=== PATIENT | male | born 1940 | race Caucasian/White ===

== ENCOUNTER 2016-12-12 18:06 | Emergency (ER) | payer MEDICARE, BC ==
[~2016-12-12] VITALS: Ht 180.3 cm; Wt 78.0 kg
[~2016-12-12 18:06] MED LIST: AMLODIPINE BESYL5 MG PO; KENALOG 0.1%80 GM T; LOMOTIL 0.025 M1 TA1 PO; NEXIUM10 MG/PACK PO; NORCO 5-325 TA1 EACH PO; PRILOSEC20 M1 PO; VITAMIN B11000 MCG/M IM; ZOFRAN ODT4 MG SL; [UNRECOGNIZED DRUG - REMARK] PO
[2016-12-12] MEDS ORDERED: IMODIUM A-D2 M3 PO (18:27)
[2016-12-12] MEDS ORDERED: POLLY-VITES1 CTB PO (18:28)
[2016-12-12] MEDS ORDERED: IRON325 M1 PO (18:28)
[2016-12-12 18:59] LABS: BASO % 0.3 % (0.0-1.0); EOS # 0.2 10*3/uL (0.0-0.4); EOS % 3.4 % (1.0-4.0); HEMATOCRIT 38.1 % (42.0-52.0); HEMOGLOBIN 12.7 g/dl (14.0-18.0); LYMPH # 1.6 10*3/uL (1.3-4.4); LYMPH % 26.7 % (27.0-41.0); MEAN CELL VOLUME 92.3 fl (80.0-94.0); MEAN CORPUSCULAR HGB 30.8 pg (27.0-31.0); MEAN CORPUSCULAR HGB CONC 33.3 g/dl (33.0-37.0); MEAN PLATELET VOLUME 9.3 fl (9.6-12.3); MONO # 0.5 10*3/uL (0.1-1.0); MONO % 7.7 % (3.0-9.0); NEUT # 3.8 10*3/uL (2.3-7.9); NEUT % 61.6 % (47.0-73.0); PLATELET COUNT AUTOMATED 259 10*3/uL (130-400); RED BLOOD COUNT 4.13 10*6/uL (4.50-5.90); RED CELL DISTRI WIDTH 14.1 % (0-14.5); WHITE BLOOD COUNT 6.1 10*3/uL (4.8-10.8)
[2016-12-12 19:14] LABS: ALBUMIN 3.2 gm/dl (3.1-4.5); ALKALINE PHOSPHATASE 94 U/L (45-117); BILIRUBIN, TOTAL 0.2 mg/dl (0.2-1.0); BUN 16 mg/dl (7-24); CARBON DIOXIDE 28 mmol/L (21-32); CHLORIDE 108 mmol/L (98-107); EST GLOM FILT AFRICAN AMERICAN > 60 ml/min; GLUCOSE 119 mg/dL (65-99); POTASSIUM 4.5 mmol/L (3.5-5.1); SGOT/AST 20 IU/L (3-35); SGPT/ALT 32 U/L (12-78); SODIUM 144 mmol/L (136-145); TOTAL PROTEIN 6.9 gm/dL (6.4-8.2)
== END 2016-12-12 19:38 | disposition home or self-care (01) ==
LOC: ED 18:06
PROVIDERS: Nurse Practitioner Family
DX: T81.89XA Other complications of procedures, not elsewhere classified, initial encounter (principal); Z79.899 Other long term (current) drug therapy

== ENCOUNTER 2017-03-17 10:54 | Emergency (ER) | payer MEDICARE, BC ==
[~2017-03-17] VITALS: Ht 180.3 cm; Wt 78.9 kg
[~2017-03-17 10:54] MED LIST changes: +IMODIUM A-D2 M3 PO; +IRON325 M1 PO; +POLLY-VITES1 CTB PO
[2017-03-17] MEDS ORDERED: VITAMIN D32000 UNIT PO (11:12)
[2017-03-17] MEDS ORDERED: CENTRUM SILVER1 EACH PO (11:12)
[2017-03-17] MEDS ORDERED: OMEGA-3100 MG PO (11:12)
[2017-03-17] MEDS ORDERED: NAPROSYN500 MG PO (11:16)
[2017-03-17] MEDS ORDERED: HYDROCODONE BIT1 T11 PO (12:45)
== END 2017-03-17 14:17 | disposition home or self-care (01) ==
LOC: ED 10:54
DX: S92.354A Nondisplaced fracture of fifth metatarsal bone, right foot, initial encounter for closed fracture (principal); S82.54XA Nondisplaced fracture of medial malleolus of right tibia, initial encounter for closed fracture; S82.64XA Nondisplaced fracture of lateral malleolus of right fibula, initial encounter for closed fracture; Z79.899 Other long term (current) drug therapy; R03.0 Elevated blood-pressure reading, without diagnosis of hypertension; X50.9XXA Other and unspecified overexertion or strenuous movements or postures, initial encounter; Y93.89 Activity, other specified; Y92.9 Unspecified place or not applicable; Y99.9 Unspecified external cause status

== ENCOUNTER → 2017-11-23 | Outpatient (CLI) | payer MEDICARE ==
[~2017-11-23] MED LIST changes: +CENTRUM SILVER1 EACH PO; +HYDROCODONE BIT1 T11 PO; +NAPROSYN500 MG PO; +OMEGA-3100 MG PO; +VITAMIN D32000 UNIT PO
[2017-11-23 10:46] LABS: CREATININE 1.62 mg/dL (0.70-1.30)
== END | disposition home or self-care (01) ==
LOC: LAB 10:09
PROVIDERS: Surgery
DX: R10.32 Left lower quadrant pain (principal)

== ENCOUNTER → 2017-11-26 | Outpatient (CLI) | payer MEDICARE | END | disposition home or self-care (01) | LOC: CT 01:23 | DX: K46.9 Unspecified abdominal hernia without obstruction or gangrene (principal); M47.897 Other spondylosis, lumbosacral region; M47.896 Other spondylosis, lumbar region; Z90.49 Acquired absence of other specified parts of digestive tract ==

== ENCOUNTER 2021-01-30 22:40 | Inpatient (IN) | payer MEDICARE ==
[~2021-01-30] VITALS: Ht 180.3 cm; Wt 64.6 kg
[2021-01-30 22:50] VITALS: BP 155/58
[2021-01-30 23:14] LABS: BASO % 0.6 % (0.0-1.0); EOS # 0.3 10*3/uL (0.0-0.4); EOS % 4.2 % (1.0-4.0); HEMATOCRIT 24.1 % (42.0-52.0); LYMPH # 1.6 10*3/uL (1.3-4.4); LYMPH % 22.1 % (27.0-41.0); MEAN CELL VOLUME 100.4 fl (80.0-94.0); MEAN CORPUSCULAR HGB 31.3 pg (27.0-31.0); MEAN CORPUSCULAR HGB CONC 31.1 g/dl (33.0-37.0); MEAN PLATELET VOLUME 9.6 fl (9.6-12.3); MONO # 0.6 10*3/uL (0.1-1.0); MONO % 8.7 % (3.0-9.0); NEUT # 4.6 10*3/uL (2.3-7.9); NEUT % 64.3 % (47.0-73.0); PLATELET COUNT AUTOMATED 207 10*3/uL (130-400); RED CELL DISTRI WIDTH 13.6 % (0-14.5); WHITE BLOOD COUNT 7.2 10*3/uL (4.8-10.8)
[2021-01-30 23:30] LABS: ALBUMIN 2.8 gm/dl (3.1-4.5); CREATININE 4.59 mg/dL (0.70-1.30); POTASSIUM 5.9 mmol/L (3.5-5.1); TOTAL PROTEIN 6.9 gm/dL (6.4-8.2)
[2021-01-31] VITALS (9 sets, daily range): BP systolic 130–156; BP diastolic 50–78
[2021-01-31] MEDS ORDERED: ASPIRIN CHEWABL81 MG PO (03:09)
[2021-01-31] MEDS ORDERED: TOPROL XL50 M1 PO (03:10)
[2021-01-31 06:09] LABS: ALBUMIN 2.6 gm/dl (3.1-4.5); CREATININE 4.4 mg/dL (0.70-1.30); POTASSIUM 5.3 mmol/L (3.5-5.1)
[2021-01-31 06:28] LABS: HEMATOCRIT 21.7 % (42.0-52.0); MEAN CORPUSCULAR HGB 31.8 pg (27.0-31.0); MEAN CORPUSCULAR HGB CONC 31.8 g/dl (33.0-37.0); MEAN PLATELET VOLUME 9.7 fl (9.6-12.3); PLATELET COUNT AUTOMATED 206 10*3/uL (130-400); RED BLOOD COUNT 2.17 10*6/uL (4.50-5.90); RED CELL DISTRI WIDTH 13.4 % (0-14.5); WHITE BLOOD COUNT 7.3 10*3/uL (4.8-10.8)
[2021-01-31 06:42] LABS: ACT PARTIAL THROMBO TIME 27.9 SECONDS (20.0-32.1)
[2021-01-31 07:15] LABS: TOTAL CELLS COUNTED 100 #CELLS
[2021-01-31 07:16] LABS: PLATELET SUFFICIENCY NORMAL (NORMAL)
[2021-01-31 09:46] LABS: IRON 45 ug/dL (65-175); TOTAL IRON BINDING CAPACITY 205 ug/dl (250-450)
[2021-01-31 15:25] LABS: BASO % 0.5 % (0.0-1.0); EOS # 0.1 10*3/uL (0.0-0.4); HEMATOCRIT 27.8 % (42.0-52.0); LYMPH # 1.4 10*3/uL (1.3-4.4); LYMPH % 20.7 % (27.0-41.0); MEAN CELL VOLUME 98.2 fl (80.0-94.0); MEAN CORPUSCULAR HGB 31.1 pg (27.0-31.0); MEAN CORPUSCULAR HGB CONC 31.7 g/dl (33.0-37.0); MEAN PLATELET VOLUME 9.3 fl (9.6-12.3); MONO # 0.6 10*3/uL (0.1-1.0); MONO % 9.2 % (3.0-9.0); NEUT # 4.4 10*3/uL (2.3-7.9); NEUT % 67.4 % (47.0-73.0); PLATELET COUNT AUTOMATED 208 10*3/uL (130-400); RED BLOOD COUNT 2.83 10*6/uL (4.50-5.90); RED CELL DISTRI WIDTH 14.1 % (0-14.5); WHITE BLOOD COUNT 6.5 10*3/uL (4.8-10.8)
[2021-02-01] VITALS: BP 141/69
[2021-02-01 06:10] LABS: CREATININE 4.46 mg/dL (0.70-1.30); POTASSIUM 4.9 mmol/L (3.5-5.1)
[2021-02-01 06:23] LABS: BASO % 0.3 % (0.0-1.0); EOS # 0.2 10*3/uL (0.0-0.4); EOS % 3.9 % (1.0-4.0); HEMATOCRIT 23.1 % (42.0-52.0); LYMPH # 1.1 10*3/uL (1.3-4.4); LYMPH % 17.9 % (27.0-41.0); MEAN CELL VOLUME 95.9 fl (80.0-94.0); MEAN CORPUSCULAR HGB 30.7 pg (27.0-31.0); MEAN PLATELET VOLUME 9.9 fl (9.6-12.3); MONO # 0.6 10*3/uL (0.1-1.0); MONO % 9.4 % (3.0-9.0); NEUT % 68.3 % (47.0-73.0); PLATELET COUNT AUTOMATED 197 10*3/uL (130-400); RED BLOOD COUNT 2.41 10*6/uL (4.50-5.90); RED CELL DISTRI WIDTH 14.4 % (0-14.5); WHITE BLOOD COUNT 5.9 10*3/uL (4.8-10.8)
[2021-02-01 08:00] VITALS: BP 152/68
[2021-02-01 12:00] VITALS: BP 120/57
[2021-02-01 16:00] VITALS: BP 126/69
[2021-02-01 20:00] VITALS: BP 136/65
[2021-02-02] VITALS: BP 133/62
[2021-02-02 07:55] LABS: BASO % 0.1 % (0.0-1.0); EOS # 0.1 10*3/uL (0.0-0.4); LYMPH # 1.1 10*3/uL (1.3-4.4); MEAN CELL VOLUME 96.4 fl (80.0-94.0); MEAN CORPUSCULAR HGB 30.9 pg (27.0-31.0); MEAN CORPUSCULAR HGB CONC 32.1 g/dl (33.0-37.0); MEAN PLATELET VOLUME 9.4 fl (9.6-12.3); MONO # 0.6 10*3/uL (0.1-1.0); MONO % 8.9 % (3.0-9.0); NEUT # 5.1 10*3/uL (2.3-7.9); NEUT % 72.7 % (47.0-73.0); PLATELET COUNT AUTOMATED 192 10*3/uL (130-400); RED BLOOD COUNT 2.49 10*6/uL (4.50-5.90)
[2021-02-02 08:00] VITALS: BP 137/60
[2021-02-02 08:16] LABS: CREATININE 4.59 mg/dL (0.70-1.30); POTASSIUM 4.2 mmol/L (3.5-5.1)
[2021-02-02 12:00] VITALS: BP 137/55
[2021-02-02 16:00] VITALS: BP 146/65
[2021-02-02 20:00] VITALS: BP 121/65
[2021-02-03] VITALS (9 sets, daily range): BP systolic 110–143; BP diastolic 54–73
[2021-02-03 06:18] LABS: BASO % 0.3 % (0.0-1.0); EOS # 0.2 10*3/uL (0.0-0.4); EOS % 2.7 % (1.0-4.0); HEMATOCRIT 23.5 % (42.0-52.0); LYMPH # 1.3 10*3/uL (1.3-4.4); LYMPH % 20.5 % (27.0-41.0); MEAN CELL VOLUME 97.1 fl (80.0-94.0); MEAN CORPUSCULAR HGB CONC 31.9 g/dl (33.0-37.0); MEAN PLATELET VOLUME 9.5 fl (9.6-12.3); MONO # 0.7 10*3/uL (0.1-1.0); MONO % 10.7 % (3.0-9.0); NEUT # 4.3 10*3/uL (2.3-7.9); NEUT % 65.5 % (47.0-73.0); PLATELET COUNT AUTOMATED 191 10*3/uL (130-400); RED BLOOD COUNT 2.42 10*6/uL (4.50-5.90); RED CELL DISTRI WIDTH 13.5 % (0-14.5); WHITE BLOOD COUNT 6.6 10*3/uL (4.8-10.8)
[2021-02-03 06:35] LABS: CREATININE 4.24 mg/dL (0.70-1.30)
[2021-02-04] VITALS: BP 114/53
[2021-02-04 08:00] VITALS: BP 137/53
[2021-02-04 08:07] LABS: BASO % 0.3 % (0.0-1.0); EOS # 0.2 10*3/uL (0.0-0.4); EOS % 3.6 % (1.0-4.0); HEMATOCRIT 26.5 % (42.0-52.0); LYMPH # 1.4 10*3/uL (1.3-4.4); LYMPH % 20.6 % (27.0-41.0); MEAN CELL VOLUME 98.1 fl (80.0-94.0); MEAN CORPUSCULAR HGB 31.1 pg (27.0-31.0); MEAN CORPUSCULAR HGB CONC 31.7 g/dl (33.0-37.0); MEAN PLATELET VOLUME 9.2 fl (9.6-12.3); MONO # 0.7 10*3/uL (0.1-1.0); MONO % 10.7 % (3.0-9.0); NEUT # 4.3 10*3/uL (2.3-7.9); NEUT % 64.6 % (47.0-73.0); PLATELET COUNT AUTOMATED 192 10*3/uL (130-400); RED CELL DISTRI WIDTH 13.5 % (0-14.5); WHITE BLOOD COUNT 6.6 10*3/uL (4.8-10.8)
[2021-02-04 08:22] LABS: CREATININE 4.17 mg/dL (0.70-1.30); POTASSIUM 3.8 mmol/L (3.5-5.1)
[2021-02-04] MEDS ORDERED: PROTONIX40 MG PO (11:32)
[2021-02-04 12:00] VITALS: BP 134/65
== END 2021-02-04 12:55 | disposition home or self-care (01) | DRG 682 ==
LOC: ED 22:40 → EDHOLD 01-31 00:51 → 4E 01-31 00:51
PROVIDERS: Emergency Medicine; Hospitalist; Internal Medicine; ADMIT Student in an Organized Health Care Education/Training Program; ATTEND Student in an Organized Health Care Education/Training Program
PROC: 30233N1 Transfusion of Nonautologous Red Blood Cells into Peripheral Vein, Percutaneous Approach (ICD-10-PCS; 2021-01-31)
PROC: 0DB78ZX Excision of Stomach, Pylorus, Via Natural or Artificial Opening Endoscopic, Diagnostic (ICD-10-PCS; principal; 2021-02-03)
DX: N17.0 Acute kidney failure with tubular necrosis (principal); E43 Unspecified severe protein-calorie malnutrition; E87.2 Acidosis; D62 Acute posthemorrhagic anemia; I12.0 Hypertensive chronic kidney disease with stage 5 chronic kidney disease or end stage renal disease; Z68.1 Body mass index [BMI] 19.9 or less, adult; K29.70 Gastritis, unspecified, without bleeding; N13.30 Unspecified hydronephrosis; N18.5 Chronic kidney disease, stage 5; D63.1 Anemia in chronic kidney disease; E87.5 Hyperkalemia; D53.9 Nutritional anemia, unspecified; K21.9 Gastro-esophageal reflux disease without esophagitis; N32.89 Other specified disorders of bladder; E53.9 Vitamin B deficiency, unspecified; E83.42 Hypomagnesemia; E87.8 Other disorders of electrolyte and fluid balance, not elsewhere classified; Z82.49 Family history of ischemic heart disease and other diseases of the circulatory system; Z90.49 Acquired absence of other specified parts of digestive tract; Z82.0 Family history of epilepsy and other diseases of the nervous system; Z79.899 Other long term (current) drug therapy; Z93.2 Ileostomy status

== ENCOUNTER 2021-03-27 11:32 | Inpatient (IN) | payer MEDICARE ==
[~2021-03-27] VITALS: Ht 180 cm; Wt 53.2 kg
[~2021-03-27 11:32] MED LIST changes: +ASPIRIN CHEWABL81 MG PO; +IMODIUM A-D2 M2 PO; -IMODIUM A-D2 M3 PO; +PROTONIX40 MG PO; +TOPROL XL50 M1 PO
[2021-03-27 11:37] VITALS: BP 106/52
[2021-03-27 13:48] LABS: BASO % 0.1 % (0.0-1.0); EOS % 0.4 % (1.0-4.0); HEMATOCRIT 32.3 % (42.0-52.0); LYMPH # 0.7 10*3/uL (1.3-4.4); LYMPH % 8.1 % (27.0-41.0); MEAN CELL VOLUME 95.3 fl (80.0-94.0); MEAN CORPUSCULAR HGB 30.7 pg (27.0-31.0); MEAN CORPUSCULAR HGB CONC 32.2 g/dl (33.0-37.0); MEAN PLATELET VOLUME 8.6 fl (9.6-12.3); MONO # 0.6 10*3/uL (0.1-1.0); MONO % 7.3 % (3.0-9.0); NEUT # 6.8 10*3/uL (2.3-7.9); NEUT % 83.7 % (47.0-73.0); PLATELET COUNT AUTOMATED 383 10*3/uL (130-400); RED BLOOD COUNT 3.39 10*6/uL (4.50-5.90); RED CELL DISTRI WIDTH 14.6 % (0-14.5); WHITE BLOOD COUNT 8.2 10*3/uL (4.8-10.8)
[2021-03-27 14:03] LABS: ALBUMIN 2.4 gm/dl (3.1-4.5); ALKALINE PHOSPHATASE 203 U/L (45-117); BUN 94 mg/dl (7-24); CHLORIDE 109 mmol/L (98-107); CREATININE 4.83 mg/dL (0.70-1.30); LIPASE 523 U/L (73-393); POTASSIUM 5.6 mmol/L (3.5-5.1); SGOT/AST 25 IU/L (3-35); SGPT/ALT 98 U/L (12-78); SODIUM 129 mmol/L (136-145); TOTAL PROTEIN 7.3 gm/dL (6.4-8.2)
[2021-03-27 14:03] LABS: BILIRUBIN Negative (Negative); BLOOD 3+ (Negative); CLARITY Turbid (Clear); COLOR Red (Yellow); GLUCOSE Negative (Negative); KETONE Negative (Negative); LEUKO ESTERASE 3+ (Negative); NITRITE Negative (Negative); UROBILINOGEN 0.2 E.U./dl (0.0-1.0)
[2021-03-27 14:06] LABS: TROPONIN I < 0.015 ng/ml (<0.045)
[2021-03-27 14:10] LABS: EPITHELIAL CELLS 0-2; RBC TNTC rbc/hpf (0-2); WBC TNTC wbc/hpf (0-5)
[2021-03-27 14:11] LABS: BACTERIA 2+; MUCOUS TRACE
[2021-03-27 16:39] VITALS: BP 110/75
[2021-03-27] MEDS ORDERED: PROTONIX40 MG PO (16:59)
[2021-03-27 17:17] VITALS: BP 111/49
[2021-03-27 20:00] VITALS: BP 127/64
[2021-03-28] VITALS: BP 121/59
[2021-03-28 05:47] LABS: ALBUMIN 2.2 gm/dl (3.1-4.5); CREATININE 4.84 mg/dL (0.70-1.30); POTASSIUM 5.4 mmol/L (3.5-5.1); TOTAL PROTEIN 6.6 gm/dL (6.4-8.2)
[2021-03-28 06:30] LABS: BASO % 0.4 % (0.0-1.0); EOS % 0.3 % (1.0-4.0); HEMATOCRIT 29.2 % (42.0-52.0); LYMPH # 0.6 10*3/uL (1.3-4.4); MEAN CELL VOLUME 96.4 fl (80.0-94.0); MEAN CORPUSCULAR HGB 30.4 pg (27.0-31.0); MEAN CORPUSCULAR HGB CONC 31.5 g/dl (33.0-37.0); MONO # 0.7 10*3/uL (0.1-1.0); MONO % 9.2 % (3.0-9.0); NEUT # 6.3 10*3/uL (2.3-7.9); NEUT % 81.6 % (47.0-73.0); PLATELET COUNT AUTOMATED 370 10*3/uL (130-400); RED BLOOD COUNT 3.03 10*6/uL (4.50-5.90); RED CELL DISTRI WIDTH 14.6 % (0-14.5); WHITE BLOOD COUNT 7.7 10*3/uL (4.8-10.8)
[2021-03-28 08:00] VITALS: BP 110/60
[2021-03-28 12:00] VITALS: BP 101/50
[2021-03-28 16:00] VITALS: BP 107/50
[2021-03-28 20:00] VITALS: BP 110/50
[2021-03-29] VITALS: BP 110/57
[2021-03-29 08:00] VITALS: BP 114/52
[2021-03-29 08:56] LABS: CREATININE 4.36 mg/dL (0.70-1.30)
[2021-03-29 08:59] LABS: POTASSIUM 4.4 mmol/L (3.5-5.1)
[2021-03-29 12:00] VITALS: BP 121/54
[2021-03-29 16:00] VITALS: BP 116/53
[2021-03-29 20:00] VITALS: BP 106/49
[2021-03-30 06:57] LABS: POTASSIUM 3.5 mmol/L (3.5-5.1)
[2021-03-30 07:11] LABS: CREATININE 3.96 mg/dL (0.70-1.30)
[2021-03-30 08:00] VITALS: BP 110/62
== END 2021-03-30 11:49 | disposition short-term general hospital (02) | DRG 391 ==
LOC: ED 11:32 → EDHOLD 15:46 → 4E 15:46
PROVIDERS: Hospitalist; Internal Medicine; Physician Assistant; ADMIT Family Medicine; ATTEND Family Medicine
DX: K29.20 Alcoholic gastritis without bleeding (principal); E43 Unspecified severe protein-calorie malnutrition; N17.9 Acute kidney failure, unspecified; E87.1 Hypo-osmolality and hyponatremia; N30.01 Acute cystitis with hematuria; E87.2 Acidosis; Z68.1 Body mass index [BMI] 19.9 or less, adult; N18.4 Chronic kidney disease, stage 4 (severe); I12.9 Hypertensive chronic kidney disease with stage 1 through stage 4 chronic kidney disease, or unspecified chronic kidney disease; E87.5 Hyperkalemia; B95.2 Enterococcus as the cause of diseases classified elsewhere; K60.4 Rectal fistula; R74.01 Elevation of levels of liver transaminase levels; R73.9 Hyperglycemia, unspecified; D53.9 Nutritional anemia, unspecified; E87.8 Other disorders of electrolyte and fluid balance, not elsewhere classified; Z20.822 Contact with and (suspected) exposure to COVID-19; K21.9 Gastro-esophageal reflux disease without esophagitis; Z90.49 Acquired absence of other specified parts of digestive tract; Z82.49 Family history of ischemic heart disease and other diseases of the circulatory system; Z82.0 Family history of epilepsy and other diseases of the nervous system; Z87.891 Personal history of nicotine dependence; Z79.899 Other long term (current) drug therapy